=== PATIENT | female | born 1985 | race Caucasian/White ===

== ENCOUNTER 2020-03-12 06:45 | Emergency (ER) | payer MEDICAID, OTHER ==
[2020-03-12 07:42] LABS: ANION GAP 18.8 mmol/L (5-15); CHLORIDE,CL 103 mmol/L (98-115); SODIUM,NA 141 mmol/L (136-145)
[2020-03-12] MEDS ORDERED: Glucose Gel 15 GM in 37.5 GM Tube PO ONE (07:49)
[2020-03-12] MEDS ORDERED: Glucose Gel 15 GM in 37.5 GM Tube ONE (07:52)
[2020-03-12] MEDS ORDERED: Iopamidol 755 Mg/ML 100 ML Bottle IV ONE (08:02)
--- NOTE | 2020-03-12 08:02 | CR ---
[id number] RAD/RAD Chest PA And Lateral EXAM: RAD Chest PA And Lateral CLINICAL DATA: CHEST PAIN COMPARISON: NO PREVIOUS SIMILAR EXAM IS AVAILABLE. FINDINGS: The lungs are clear. The cardiomediastinal contour is normal. The regional bones and soft tissues are unremarkable. IMPRESSION: NO ACUTE PROCESS. Cesar Brooks MD 03/12/20 0800 Thank you for allowing us to participate in the care of your patient.
--- NOTE | 2020-03-12 08:09 | EDM.PDOC ---
ED HPI GENERAL MEDICAL PROBLEM - General Chief Complaint: General Stated Complaint: heart pounding Time Seen by Provider: 03/12/20 07:40 Source of Information: Reports: Patient History Limitations: Reports: No Limitations - History of Present Illness INITIAL COMMENTS - FREE TEXT/NARRATIVE: Patient is a 35-year-old female who presents to the emergency department this morning via private vehicle with a complaint of palpitations, nervousness, shortness of breath. Patient states symptoms began at 2 a.m. She was awoken suddenly and felt very shaky with palpitations. Patient is able to fall back to sleep, woke again at 6 a.m. with similar symptoms. She decided to present to the emergency department. Patient states she is 15 days for a stillbirth at 35 weeks. The was vaginal. Patient states she's had no complications since then. Patient admits to being distressed but denies taking any medication or hurting self. Patient has no other medical history, history of DVTs, fever, chest pain, shortness of breath, headache, trauma, abdominal pain, nausea, vomiting, diarrhea, out of area travel, or recent lower extremity edema. Onset: Today, Sudden Duration: Hour(s): Location: Reports: Chest Quality: Reports: Other (Pounding) Severity: Mild Improves with: Reports: None Worsens with: Reports: None Context: Reports: Other (At rest) Associated Symptoms: Reports: Nausea/Vomiting, Shortness of Breath. Denies: Chest Pain, Cough, cough w sputum, Diaphoresis, Fever/Chills, Headaches, Rash - Related Data Allergies Allergy/AdvReac Type Severity Reaction Status Date / Time Penicillins Allergy Shortness Verified 03/12/20 07:41 of Breath Home Meds: Home Meds Furosemide [Lasix] 20 mg PO PRN 03/12/20 [History] Social & Family History - Tobacco Use Smoking Status *Q: Never Smoker Second Hand Smoke Exposure: No - Caffeine Use Caffeine Use: Reports: Coffee, Soda, Tea Other Caffeine Use: 1 cup coffee a day - Alcohol Use Days Per Week of Alcohol Use: 3 Number of Drinks Per Day: 3 Total Drinks Per Week: 9 - Recreational Drug Use Recreational Drug Use: No ED ROS GENERAL - Review of Systems Review Of Systems: Comprehensive ROS is negative, except as noted in HPI. Constitutional: Reports: No Symptoms HEENT: Reports: No Symptoms Respiratory: Reports: Shortness of Breath Cardiovascular: Reports: Palpitations Endocrine: Reports: No Symptoms GI/Abdominal: Reports: No Symptoms : Reports: No Symptoms Musculoskeletal: Reports: No Symptoms Skin: Reports: No Symptoms Neurological: Reports: No Symptoms Psychiatric: Reports: No Symptoms Hematologic/Lymphatic: Reports: No Symptoms Immunologic: Reports: No Symptoms ED EXAM, GENERAL - Physical Exam Exam: See Below Exam Limited By: No Limitations General Appearance: Alert, WD/WN, No Apparent Distress Eye Exam: Bilateral Eye: Normal Inspection Nose: Normal Inspection, Normal Mucosa, No Blood Throat/Mouth: Normal Inspection, Normal Oropharynx, No Airway Compromise Head: Atraumatic, Normocephalic Neck: Normal Inspection, Supple, Non-Tender Respiratory/Chest: No Respiratory Distress, Lungs Clear, Normal Breath Sounds, No Accessory Muscle Use, Chest Non-Tender Cardiovascular: Regular Rate, Rhythm, No Murmur, No Rub GI/Abdominal: Normal Bowel Sounds, Soft, Non-Tender, No Organomegaly, No Distention, No Abnormal Bruit, No Mass Back Exam: Normal Inspection. No: CVA Tenderness (L), CVA Tenderness (R) Extremities: Normal Inspection, No Pedal Edema Neurological: Alert, Oriented, CN II-XII Intact, Normal Cognition, No Motor/ Sensory Deficits Psychiatric: Anxious Skin Exam: Warm, Dry, Intact, Normal Color, No Rash Lymphatic: No Adenopathy EKG INTERPRETATION EKG Date: 03/12/20 Time: 07:20 Rhythm: NSR Rate (Beats/Min): 79 [place]: Normal P-Wave: Present QRS: Normal ST-T: Normal QT: Normal Comparison: NA - No Prior EKG Course - Vital Signs Last Recorded V/S: Last Vital Signs Temp 97.0 F 03/12/20 07:12 Pulse 99 03/12/20 10:34 Resp 18 03/12/20 10:34 BP 122/62 03/12/20 10:34 Pulse Ox 100 03/12/20 10:34 - Orders/Labs/Meds Orders: Active Orders 24 hr Category Date Time Status Accu Check [Blood Glucose Check, Bedside] [] ONETIME Care 03/12/20 08:00 Ordered Blood Glucose Check, Bedside [] ONETIME Care 03/12/20 09:00 Active Blood Glucose Check, Bedside [] ONETIME Care 04/15/20 09:40 Active Blood Glucose Check, Bedside [RC] ONETIME Care 03/12/20 10:25 Active EKG Documentation Completion [RC] ASDIRECTED Care 03/12/20 07:23 Active Sodium Chloride 0.9% [Normal Saline] 100 ml Med 03/12/20 08:15 Active IV ASDIRECTED Sodium Chloride 0.9% [Saline Flush] Med 03/12/20 09:09 Active 10 ml FLUSH ASDIRECTED PRN Medication Orders Sodium Chloride (Normal Saline) 100 mls @ 200 mls/min IV ASDIRECTED MALIHA Last Admin: 03/12/20 10:10 Dose: 200 mls/min Sodium Chloride (Saline Flush) 10 ml FLUSH ASDIRECTED PRN PRN Reason: IV Use Last Admin: 03/12/20 09:15 Dose: 10 ml Admin: 03/12/20 09:08 Dose: 10 ml Labs: Laboratory Tests 03/12/20 03/12/20 03/12/20 Range/Units 07:05 07:05 07:05 WBC 4.23 L (5.00-10.00) 10^3/uL RBC 3.72 L (3.80-5.50) 10^6/uL Hgb 10.0 L (12.0-16.0) g/dL Hct 31.5 L (37.0-47.0) % MCV 84.7 (82.0-92.0) fL MCH 26.9 L (27.0-31.0) pg MCHC 31.7 L (32.0-36.0) g/dL RDW 19.8 H (11.5-14.5) % Plt Count 119 L (150-400) 10^3/uL MPV 10.7 H (7.4-10.4) fL Immature Gran % (Auto) 0.2 (0.0-5.0) % Neut % (Auto) 62.9 (50.0-70.0) % Lymph % (Auto) 30.5 (20.0-40.0) % [place] % (Auto) 5.7 (2.0-8.0) % Eos % (Auto) 0.5 L (1.0-3.0) % Baso % (Auto) 0.2 (0.0-1.0) % Immature Gran # (Auto) 0.01 (0.00-0.50) 10^3/uL Neut # (Auto) 2.66 (2.50-7.00) 10^3/uL Lymph # (Auto) 1.29 (1.00-4.00) 10^3/uL [place] # (Auto) 0.24 (0.10-0.80) 10^3/uL Eos # (Auto) 0.02 L (0.10-0.30) 10^3/uL Baso # (Auto) 0.01 (0.00-0.10) 10^3/uL D-Dimer, Quantitative 1310 H (<400) ng/mL Sodium 141 (136-145) mmol/L Potassium 3.7 (3.3-5.3) mmol/L Chloride 103 (98-115) mmol/L Carbon Dioxide 22.9 (21.0-32.0) mmol/L Anion Gap 18.8 H (5-15) mmol/L BUN 4 L (6-25) mg/dL Creatinine 0.67 (0.51-1.17) mg/dL Est Cr Clr Drug Dosing 125.53 mL/min Estimated GFR (MDRD) > 60 mL/min Glucose 48 L (75 - 99) mg/dL Calcium 6.7 L (8.7-10.3) mg/dL Total Bilirubin 1.0 (0.2-1.0) mg/dL AST 132 H (15-37) U/L ALT 59 (12-78) U/L Alkaline Phosphatase 141 H (46-116) IU/L Total Protein 5.9 L (6.4-8.2) g/dL Albumin 2.69 L (3.00-4.80) g/dL Meds: Medications Generic Name Dose Route Start Last Admin Trade Name Freq PRN Reason Stop Dose Admin Sodium Chloride 100 mls @ 200 mls/min 03/12/20 08:15 03/12/20 10:10 Normal Saline IV 200 mls/min ASDIRECTED MALIHA Administration Sodium Chloride 10 ml 03/12/20 09:09 03/12/20 09:15 Saline Flush FLUSH 10 ml ASDIRECTED PRN Administration IV Use Discontinued Medications Generic Name Dose Route Start Last Admin Trade Name Freq PRN Reason Stop Dose Admin Dextrose 15 gm 03/12/20 07:49 03/12/20 07:55 Glutose 15 PO 03/12/20 07:50 15 gm ONETIME ONE Administration Dextrose Confirm 03/12/20 07:52 03/12/20 08:51 Glutose 15 Administered 03/12/20 07:53 Not Given Dose 15 gm .ROUTE .STK-MED ONE Dextrose/Water 50 ml 03/12/20 09:02 03/12/20 09:09 Dextrose 50% In Water IVPUSH 03/12/20 09:03 50 ml ONETIME ONE Administration Iopamidol 100 ml 03/12/20 08:02 03/12/20 10:09 Isovue-370 (76%) IV 03/12/20 08:03 75 ml ONETIME ONE Administration Lorazepam 0.5 mg 03/12/20 10:30 Ativan PO 03/12/20 10:31 ONETIME ONE Ondansetron HCl 4 mg 03/12/20 10:32 03/12/20 10:37 Zofran IVPUSH 03/12/20 10:33 4 mg ONETIME ONE Administration - Radiology Interpretation Free Text/Narrative:: Chest x-ray shows no acute cardiopulmonary process CT chest with contrast shows no pulmonary emboli. There is a left 2.5 cm indeterminate adrenal mass - Re-Assessments/Exams Free Text/Narrative Re-Assessment/Exam: 03/12/20 10:38 Patient initially given glucose gel with a rise in glucose to 67. Patient then given dextrose 50, which increased glucose to 160. Discussed case with Dr. Michelle Peralta. Patient will get a prescription for a glucometer and will monitor glucose daily. Patient will follow-up with Dr. Ferreira Tuesday or Tuesday next week. Patient will return to emergency department if symptoms worsen. 03/12/20 10:39 03/12/20 10:40 Departure - Departure Time of Disposition: 10:48 Disposition: Home, Self-Care 01 Condition: Good Clinical Impression: Hypoglycemia, Adrenal mass 1 cm to 4 cm in diameter with no history of malignant neoplasm - Discharge Information Instructions: Preventing Hypoglycemia, Hypoglycemia, [id number], Adrenal Adenoma, Blood Glucose Monitoring, Adult Referrals: Alise Flannery MD [Primary Care Provider] - Forms: ED Department Discharge Additional Instructions: Monitor blood glucose 3 times per day. Follow-up with Dr. Ferreira Tuesday or Tuesday next week. Return to emergency department sooner if symptoms continue or worsen. Sepsis Event Note - Evaluation Sepsis Screening Result: No Definite Risk - Focused Exam Vital Signs: Vital Signs Temp Pulse Resp BP Pulse Ox 03/12/20 10:34 99 18 122/62 100 03/12/20 10:23 96 18 121/65 100 03/12/20 10:07 97 18 121/59 L 100 03/12/20 09:43 89 19 111/64 100 03/12/20 09:15 86 18 107/48 L 100 03/12/20 08:53 85 12 114/55 L 100 03/12/20 07:12 97.0 F 112 H 22 H 132/76 99 Date Exam was Performed: 03/12/20 Time Exam was Performed: 10:39 - My Orders Last 24 Hours: My Active Orders 03/12/20 07:23 EKG Documentation Completion [RC] ASDIRECTED 03/12/20 08:00 Accu Check [Blood Glucose Check, Bedside] [RC] ONETIME 03/12/20 08:15 Sodium Chloride 0.9% [Normal Saline] 100 ml IV ASDIRECTED 03/12/20 09:00 Blood Glucose Check, Bedside [RC] ONETIME 03/12/20 09:09 Sodium Chloride 0.9% [Saline Flush] 10 ml FLUSH ASDIRECTED PRN 03/12/20 09:40 Blood Glucose Check, Bedside [RC] ONETIME 03/12/20 10:25 Blood Glucose Check, Bedside [RC] ONETIME - Assessment/Plan Last 24 Hours: My Active Orders 03/12/20 07:23 EKG Documentation Completion [RC] ASDIRECTED 03/12/20 08:00 Accu Check [Blood Glucose Check, Bedside] [RC] ONETIME 03/12/20 08:15 Sodium Chloride 0.9% [Normal Saline] 100 ml IV ASDIRECTED 03/12/20 09:00 Blood Glucose Check, Bedside [RC] ONETIME 03/12/20 09:09 Sodium Chloride 0.9% [Saline Flush] 10 ml FLUSH ASDIRECTED PRN 03/12/20 09:40 Blood Glucose Check, Bedside [RC] ONETIME 03/12/20 10:25 Blood Glucose Check, Bedside [RC] ONETIME Assessment:: Hypoglycemia, adrenal mass Plan: Follow-up with Dr. Ferreira
[2020-03-12] MEDS ORDERED: Sodium Chloride 0.9% 100 ML IV SCH (08:15)
[2020-03-12] MEDS ORDERED: 50% Dextrose in Water 50 ML Syringe IVPUSH ONE (09:02)
--- NOTE | 2020-03-12 09:06 | CT ---
[id number] CT/CT Chest W IV Exam: CT Chest W IV Clinical Data: ELEVATED D-DIMER COMPARISON: NO PREVIOUS SIMILAR EXAM IS AVAILABLE FINDINGS: There are no pulmonary emboli seen. There is no infiltrate or effusion There is no mediastinal mass or adenopathy The great vessels appear to be intact There are surgical changes of the GE junction There appears to be an indeterminate 2.5 cm left adrenal mass Arterial imaging only was performed Consider follow-up CT of the abdomen with portal venous phase contrast enhancement There appears to be a fatty liver IMPRESSION: NO PULMONARY EMBOLI SURGICAL CHANGES AT GE JUNCTION LEFT ADRENAL MASS Cesar Brooks MD 03/12/20 0905 Thank you for allowing us to participate in the care of your patient.
[2020-03-12] MEDS: Sodium Chloride 0.9% 10 ML Syringe FLUSH PRN ×3 (09:08→10:40)
[2020-03-12] MEDS ORDERED: LORazepam 0.5 MG Tab PO ONE ×2 (10:30→11:14)
[2020-03-12] MEDS ORDERED: Ondansetron 4 MG/2 ML SDV IVPUSH ONE (10:32)
[2020-03-12] MEDS ORDERED: Ondansetron 4 MG/2 ML SDV ONE (10:36)
[2020-03-12 12:14] VITALS: BP 118/59; PULSE 109
== END 2020-03-12 12:40 | disposition home or self-care (01) ==
LOC: KA.ED 06:45
DX: E16.2 Hypoglycemia, unspecified (principal); E27.8 Other specified disorders of adrenal gland; Z88.0 Allergy status to penicillin
CPT/HCPCS: 36415; 71046; 71260; 80053; 82962; 85025; 85379; 93005; 96374; 96375; 99284; 99285-25; A9270-GY; J2405; J7050; Q9967

== ENCOUNTER 2020-04-03 15:10 | Emergency (ER) | payer MEDICAID ==
[2020-04-03] MEDS: Sodium Chloride 0.9% 1,000 ML IV ONE (15:41)
--- NOTE | 2020-04-03 15:53 | EDM.PDOCBH ---
ED HPI GENERAL MEDICAL PROBLEM - General Chief Complaint: Behavioral/Psych Stated Complaint: Psych EVAL/drinking Time Seen by Provider: 04/03/20 15:40 Source of Information: Reports: Patient History Limitations: Reports: Intoxication - History of Present Illness INITIAL COMMENTS - FREE TEXT/NARRATIVE: 35-year-old female brought in by EMS for psychiatric evaluation. Patient has a long history of alcohol abuse. This was exacerbated since she experienced a miscarriage on February 24. She's been drinking approximately a liter of vodka a day. She is currently living with her grandmother. She stated to her grandmother " why don't you just shoot me". She is requesting help for her alcohol dependence and wanting to go through rehabilitation. She has drank about three quarters of a liter of vodka today. She is clearly intoxicated but reasonably cooperative with the medical staff and myself. We did place a IV in her right antecubital 1 L normal saline fluid is started. Lab work for blood alcohol and toxicology were drawn as well as a basic metabolic panel and CBC. She does not take any medications other than a multivitamin. Onset: Today Onset Date: 04/03/20 Duration: Hour(s):, Recurring Location: Reports: Generalized Severity: Severe Associated Symptoms: Reports: Other (Slurred speech). Denies: Nausea/Vomiting - Related Data Allergies Allergy/AdvReac Type Severity Reaction Status Date / Time Penicillins Allergy Shortness Verified 04/03/20 15:17 of Breath Home Meds: Home Meds . [No Known Home Meds] 04/03/20 [History] Past Medical History - Past Surgical History HEENT Surgical History: Reports: Tonsillectomy GI Surgical History: Reports: Other (See Below) Other GI Surgeries/Procedures: Gastric bypass Social & Family History - Tobacco Use Used Tobacco, but Quit: Yes Month/Year Tobacco Last Used: 2009 - Caffeine Use Caffeine Use: Reports: None Other Caffeine Use: 1 cup coffee a day - Alcohol Use Days Per Week of Alcohol Use: 7 Number of Drinks Per Day: 5 Total Drinks Per Week: 35 Date of Last Drink: 04/03/20 Time of Last Drink: 13:00 - Recreational Drug Use Recreational Drug Use: Yes Drug Use in Last 12 Months: No ED ROS GENERAL - Review of Systems Review Of Systems: Comprehensive ROS is negative, except as noted in HPI. ED EXAM, BEHAVIORAL HEALTH - Physical Exam Exam: See Below Exam Limited By: Intoxication General Appearance: Alert, WD/WN, No Apparent Distress Eye Exam: Bilateral Eye: EOMI Ears: Hearing Grossly Normal Nose: Normal Inspection Throat/Mouth: No Airway Compromise Head: Atraumatic Neck: Normal Inspection, Supple Respiratory/Chest: Lungs Clear, Normal Breath Sounds Cardiovascular: Normal Peripheral Pulses, Regular Rate, Rhythm GI/Abdominal: Soft, Non-Tender Back Exam: Normal Inspection Extremities: Normal Inspection Neurological: Alert, Slow Response to Commands, Other (Clearly intoxicated was slowed motor skills ) Psychiatric: Alert, Depressed Mood, Tearful Skin Exam: Warm, Dry, Intact, Normal color, No rash COURSE, BEHAVIORAL HEALTH COMP - Course Vital Signs: Last Vital Signs Temp 98.1 F 04/03/20 15:12 Pulse 100 04/03/20 15:12 Resp 16 04/03/20 15:12 BP 145/91 H 04/03/20 15:12 Pulse Ox 94 L 04/03/20 15:12 Orders, Labs, Meds: Laboratory Tests 04/03/20 04/03/20 04/03/20 Range/Units 15:35 15:35 16:15 WBC 3.46 L (5.00-10.00) 10^3/uL RBC 4.70 (3.80-5.50) 10^6/uL Hgb 13.5 D (12.0-16.0) g/dL Hct 42.6 (37.0-47.0) % MCV 90.6 D (82.0-92.0) fL MCH 28.7 (27.0-31.0) pg MCHC 31.7 L (32.0-36.0) g/dL RDW 20.4 H (11.5-14.5) % Plt Count 161 (150-400) 10^3/uL MPV 10.2 (7.4-10.4) fL Add Manual Diff Yes Neutrophils % (Manual) 38 L (50-70) % Lymphocytes % (Manual) 59 H (20-40) % Monocytes % (Manual) 3 (2-8) % Absolute Neutrophils 1.31 Lymphocytes # (Manual) 2.04 Monocytes # (Manual) 0.10 Elliptocytes 1+ slight Sodium 150 H (136-145) mmol/L Potassium 4.1 (3.3-5.3) mmol/L Chloride 107 (98-115) mmol/L Carbon Dioxide 27.0 (21.0-32.0) mmol/L Anion Gap 20.1 H (5-15) mmol/L BUN 8 (6-25) mg/dL Creatinine 0.76 (0.51-1.17) mg/dL Est Cr Clr Drug Dosing 110.66 mL/min Estimated GFR (MDRD) > 60 mL/min Glucose 87 (75 - 99) mg/dL Calcium 8.5 L D (8.7-10.3) mg/dL Urine Opiates Screen Negative (NEGATIVE) Ur Oxycodone Screen Negative (NEGATIVE) Urine Methadone Screen Negative (NEGATIVE) Ur Propoxyphene Screen Negative (NEGATIVE) Ur Barbiturates Screen Negative (NEGATIVE) Ur Tricyclics Screen Negative (NEGATIVE) Ur Phencyclidine Scrn Negative (NEGATIVE) Ur Amphetamine Screen Negative (NEGATIVE) U Methamphetamines Scrn Negative (NEGATIVE) U Benzodiazepines Scrn Negative (NEGATIVE) U Cocaine Metab Screen Negative (NEGATIVE) U Marijuana (THC) Screen Negative (NEGATIVE) Ethyl Alcohol 481 H* (NONE DETECTED) mg/dL Medications Discontinued Medications Generic Name Dose Route Start Last Admin Trade Name Freq PRN Reason Stop Dose Admin Sodium Chloride 1,000 mls @ 999 mls/hr 04/03/20 15:25 04/03/20 15:41 Normal Saline IV 04/03/20 16:25 999 mls/hr .BOLUS ONE Administration Lorazepam 0.5 mg 04/03/20 16:41 04/03/20 16:50 Ativan PO 04/03/20 16:42 0.5 mg ONETIME ONE Administration Lorazepam 0.5 mg 04/03/20 17:33 Ativan PO 04/03/20 17:34 ONETIME ONE Re-Assessment/Re-Exam: Patient has been compliant and receptive to care. We did start an IV running on normal saline and right antecubital. She was cooperative with laboratory draw. She is requesting help for her alcohol abuse and dependency. Departure - Departure Time of Disposition: 18:00 Disposition: DC/Tfer to Psych Hosp/Unit 65 Condition: Fair Clinical Impression: Alcohol abuse, Depressive disorder, Anxiety Alcohol intoxication Qualifiers: Complication of substance-induced condition: uncomplicated Qualified Code(s): F10.920 - Alcohol use, unspecified with intoxication, uncomplicated - Discharge Information Instructions: Alcohol Intoxication, Major Depressive Disorder, Adult, Easy-to- Read, Alcohol Withdrawal Syndrome, [id number], Living With Anxiety Referrals: Alise Flannery MD [Primary Care Provider] - Forms: ED Department Discharge Sepsis Event Note - Evaluation Sepsis Screening Result: No Definite Risk - Focused Exam Vital Signs: Vital Signs Temp Pulse Resp BP Pulse Ox 04/03/20 15:12 98.1 F 100 16 145/91 H 94 L Date Exam was Performed: 04/03/20 Time Exam was Performed: 17:35 - Assessment/Plan Assessment:: Alcohol intoxication Dependency [place]. depressive disorder Plan: Recommend transferring to inpatient alcohol dependent treatment. We will make arrangements for transfer, looking at the [facility] in [place]. Patient will be transferred by EMS to [place]. Patient and family are adamantly refusing to be transferred to the [facility] at this time. They were recommend that she come home with them and have supervision staying with the grandma where she is currently living. I discussed this with the [facility] her [facility] human services and she remained recommends that a for safety planning is in place that this would be option for her to go home with family. I do recommend that the family reconsider doing an outpatient chemical dependency program with [facility] in [place].
[2020-04-03 16:05] LABS: ANION GAP 20.1 mmol/L (5-15); CHLORIDE,CL 107 mmol/L (98-115); SODIUM,NA 150 mmol/L (136-145)
[2020-04-03 16:39] LABS: BARBITURATE SCREEN,URINE NEGATIVE (NEGATIVE); BENZODIAZEPINES SCREEN,URINE NEGATIVE (NEGATIVE)
[2020-04-03 16:40] LABS: TCA SCREEN,URINE NEGATIVE (NEGATIVE); THC SCREEN,URINE 50 NG/ML NEGATIVE (NEGATIVE)
[2020-04-03] MEDS: LORazepam 0.5 MG Tab PO ONE ×2 (16:50→17:39)
== END 2020-04-03 18:20 ==
LOC: KA.ED 15:10
DX: F10.129 Alcohol abuse with intoxication, unspecified (principal); Y90.8 Blood alcohol level of 240 mg/100 ml or more; F32.9 Major depressive disorder, single episode, unspecified; F41.9 Anxiety disorder, unspecified; Z88.0 Allergy status to penicillin; Z87.891 Personal history of nicotine dependence
CPT/HCPCS: 80048; 80305-QW; 80307; 85025; 99284; A9270-GY; J7030

== ENCOUNTER 2020-07-04 12:30 | Emergency (ER) | payer MEDICAID ==
--- NOTE | 2020-07-04 12:49 | EDM.PDOC ---
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: Psychiatric History: Reports: Addiction, Depression - Past Surgical History HEENT Surgical History: Reports: Tonsillectomy GI Surgical History: Reports: Other (See Below) Other GI Surgeries/Procedures: Gastric bypass Social & Family History - Family History Family Medical History: Noncontributory Neurological: Reports: Alzheimers Disease, Dementia - Tobacco Use Smoking Status *Q: Never Smoker - Caffeine Use Caffeine Use: Reports: None Other Caffeine Use: 1 cup coffee a day - Alcohol Use Days Per Week of Alcohol Use: 7 Number of Drinks Per Day: 20 Total Drinks Per Week: 140 - Recreational Drug Use Recreational Drug Use: No ED ROS GENERAL - Review of Systems Review Of Systems: See Below Constitutional: Reports: Fever, Chills, Weakness HEENT: Reports: Vision Change Respiratory: Reports: No Symptoms Cardiovascular: Reports: No Symptoms Endocrine: Reports: Fatigue GI/Abdominal: Reports: Abdominal Pain, Constipation, Decreased Appetite. Denies: Black Stool, Bloody Stool : Reports: No Symptoms Musculoskeletal: Reports: Muscle Pain Skin: Reports: Bruising Neurological: Reports: Headache Psychiatric: Reports: Agitation Hematologic/Lymphatic: Reports: No Symptoms Immunologic: Reports: No Symptoms ED EXAM, GENERAL - Physical Exam Exam: See Below Free Text/Narrative:: Alert, anxious and in mild tremoring disposition. HEENT is negative to discharge or deformity. PERRLA mild icterus present, EOM intact. Oral mucosa is dry in appearance with furloughed tongue. Strong odor of alcohol drinking beverage from her. Neck shows no lymphadenopathy tenderness to the musculature in general. No rigidity is appreciated. Thorax is clear with no wheezes no crackles. Cardiac S1-S2 I do not appreciate any murmur. Abdomen is general lysed pain throughout with increased pain to the right upper quadrant with palpable liver margin. There is no lower quadrant discomfort nor rebound tenderness. Mild flank discomfort and musculature of the thorax is noted. Bruising to the extremities more prominent to the lower extremities right thigh largest bruise. rectal is deferred. Motion of the extremities is intact with occasional tremor no clonus is noted. Slight improvement of the tremoring and anxiety after medication and D50 given with a repeat blood sugar of 131. EKG INTERPRETATION EKG Date: 07/04/20 Time: 13:58 Rhythm: NSR Nicholson: Normal P-Wave: Present QRS: Normal ST-T: Normal QT: Normal Comparison: NA - No Prior EKG Course - Vital Signs Last Recorded V/S: Last Vital Signs Temp 36.6 C 07/04/20 15:03 Pulse 81 07/04/20 15:03 Resp 16 07/04/20 15:03 BP 116/69 07/04/20 15:03 Pulse Ox 97 07/04/20 15:03 - Orders/Labs/Meds Orders: Active Orders 24 hr Category Date Time Status Blood Glucose Check, Bedside [RC] ONETIME Care 07/04/20 14:08 Active EKG Documentation Completion [RC] ASDIRECTED Care 07/04/20 13:50 Active Peripheral IV Care [RC] . DIRECTED Care 07/04/20 12:55 Active Peripheral IV Insertion Adult [OM.PC] Routine Oth 07/04/20 12:55 Ordered EKG 12 Lead [EK] Urgent Ther 07/04/20 13:49 Ordered Labs: Laboratory Tests 07/04/20 07/04/20 07/04/20 Range/Units 13:03 13:03 13:03 WBC 2.75 L (5.00-10.00) 10^3/uL RBC 4.87 (3.80-5.50) 10^6/uL Hgb 12.6 (12.0-16.0) g/dL Hct 40.6 (37.0-47.0) % MCV 83.4 D (82.0-92.0) fL MCH 25.9 L (27.0-31.0) pg MCHC 31.0 L (32.0-36.0) g/dL RDW 19.2 H (11.5-14.5) % Plt Count 73 L D (150-400) 10^3/uL MPV 9.6 (7.4-10.4) fL Immature Gran % (Auto) 0.4 (0.0-5.0) % Neut % (Auto) 51.9 (50.0-70.0) % Lymph % (Auto) 39.3 (20.0-40.0) % [place] % (Auto) 7.3 (2.0-8.0) % Eos % (Auto) 0.7 L (1.0-3.0) % Baso % (Auto) 0.4 (0.0-1.0) % Neut # (Auto) 1.43 L (2.50-7.00) 10^3/uL Lymph # (Auto) 1.08 (1.00-4.00) 10^3/uL [place] # (Auto) 0.20 (0.10-0.80) 10^3/uL Eos # (Auto) 0.02 L (0.10-0.30) 10^3/uL Baso # (Auto) 0.01 (0.00-0.10) 10^3/uL Immature Gran # (Auto) 0.01 (0.00-0.50) 10^3/uL Sodium 142 (136-145) mmol/L Potassium 4.7 (3.3-5.3) mmol/L Chloride 98 (98-115) mmol/L Carbon Dioxide 24.3 (21.0-32.0) mmol/L Anion Gap 24.4 H (5-15) mmol/L BUN 12 (6-25) mg/dL Creatinine 0.61 (0.51-1.17) mg/dL Est Cr Clr Drug Dosing TNP Estimated GFR (MDRD) > 60 mL/min Glucose 63 L (75 - 99) mg/dL Lactic Acid 2.8 H (0.4-2.0) mmol/L Calcium 8.3 L (8.7-10.3) mg/dL Total Bilirubin 1.2 H (0.2-1.0) mg/dL AST 351 H (15-37) U/L ALT 213 H (12-78) U/L Alkaline Phosphatase 101 (46-116) IU/L Total Protein 7.8 (6.4-8.2) g/dL Albumin 4.27 (3.00-4.80) g/dL Amylase 136 H (25-125) U/L Lipase 1310 H (73-393) U/L HCG, Qual Negative (NEGATIVE) Urine Opiates Screen (NEGATIVE) Ur Oxycodone Screen (NEGATIVE) Urine Methadone Screen (NEGATIVE) Ur Propoxyphene Screen (NEGATIVE) Ur Barbiturates Screen (NEGATIVE) Ur Tricyclics Screen (NEGATIVE) Ur Phencyclidine Scrn (NEGATIVE) Ur Amphetamine Screen (NEGATIVE) U Methamphetamines Scrn (NEGATIVE) U Benzodiazepines Scrn (NEGATIVE) U Cocaine Metab Screen (NEGATIVE) U Marijuana (THC) Screen (NEGATIVE) Ethyl Alcohol 398 H* (NONE DETECTED) mg/dL 07/04/20 Range/Units 13:40 WBC (5.00-10.00) 10^3/uL RBC (3.80-5.50) 10^6/uL Hgb (12.0-16.0) g/dL Hct (37.0-47.0) % MCV (82.0-92.0) fL MCH (27.0-31.0) pg MCHC (32.0-36.0) g/dL RDW (11.5-14.5) % Plt Count (150-400) 10^3/uL MPV (7.4-10.4) fL Immature Gran % (Auto) (0.0-5.0) % Neut % (Auto) (50.0-70.0) % Lymph % (Auto) (20.0-40.0) % [place] % (Auto) (2.0-8.0) % Eos % (Auto) (1.0-3.0) % Baso % (Auto) (0.0-1.0) % Neut # (Auto) (2.50-7.00) 10^3/uL Lymph # (Auto) (1.00-4.00) 10^3/uL [place] # (Auto) (0.10-0.80) 10^3/uL Eos # (Auto) (0.10-0.30) 10^3/uL Baso # (Auto) (0.00-0.10) 10^3/uL Immature Gran # (Auto) (0.00-0.50) 10^3/uL Sodium (136-145) mmol/L Potassium (3.3-5.3) mmol/L Chloride (98-115) mmol/L Carbon Dioxide (21.0-32.0) mmol/L Anion Gap (5-15) mmol/L BUN (6-25) mg/dL Creatinine (0.51-1.17) mg/dL Est Cr Clr Drug Dosing Estimated GFR (MDRD) mL/min Glucose (75 - 99) mg/dL Lactic Acid (0.4-2.0) mmol/L Calcium (8.7-10.3) mg/dL Total Bilirubin (0.2-1.0) mg/dL AST (15-37) U/L ALT (12-78) U/L Alkaline Phosphatase (46-116) IU/L Total Protein (6.4-8.2) g/dL Albumin (3.00-4.80) g/dL Amylase (25-125) U/L Lipase (73-393) U/L HCG, Qual (NEGATIVE) Urine Opiates Screen Negative (NEGATIVE) Ur Oxycodone Screen Negative (NEGATIVE) Urine Methadone Screen Negative (NEGATIVE) Ur Propoxyphene Screen Negative (NEGATIVE) Ur Barbiturates Screen Negative (NEGATIVE) Ur Tricyclics Screen Negative (NEGATIVE) Ur Phencyclidine Scrn Negative (NEGATIVE) Ur Amphetamine Screen Negative (NEGATIVE) U Methamphetamines Scrn Negative (NEGATIVE) U Benzodiazepines Scrn Negative (NEGATIVE) U Cocaine Metab Screen Negative (NEGATIVE) U Marijuana (THC) Screen Negative (NEGATIVE) Ethyl Alcohol (NONE DETECTED) mg/dL Meds: Medications Discontinued Medications Generic Name Dose Route Start Last Admin Trade Name Freq PRN Reason Stop Dose Admin Cyanocobalamin 1,000 mcg 07/04/20 13:06 07/04/20 13:32 Vitamin B12 IM 07/04/20 13:07 1,000 mcg ONETIME ONE Administration Dextrose/Water 50 ml 07/04/20 13:48 07/04/20 13:51 Dextrose 50% In Water IVPUSH 07/04/20 13:49 50 ml ONETIME ONE Administration Sodium Chloride 1,000 mls @ 150 mls/hr 07/04/20 13:00 07/04/20 13:08 Normal Saline IV 150 mls/hr ASDIRECTED MALIHA Administration Midazolam HCl 1 mg 07/04/20 12:59 07/04/20 13:10 Versed 1 Mg/Ml IVPUSH 07/04/20 13:00 1 mg ONETIME ONE Administration Ondansetron HCl 8 mg 07/04/20 14:16 07/04/20 14:24 Zofran IVPUSH 07/04/20 14:17 8 mg ONETIME ONE Administration Sodium Chloride 10 ml 07/04/20 12:55 Saline Flush FLUSH Q8HR PRN keep vein open Thiamine HCl 50 mg 07/04/20 12:56 07/04/20 13:32 Vitamin B-1 IM 07/04/20 12:57 50 mg ONETIME ONE Administration Thiamine HCl 50 mg 07/04/20 13:00 07/04/20 13:25 Vitamin B-1 IVPUSH 07/04/20 13:01 50 mg ONETIME ONE Administration - Re-Assessments/Exams Free Text/Narrative Re-Assessment/Exam: 07/04/20 13:47 Advised of electrolytes, elevation in liver enzymes along with significantly elevated EtOH and will contact [facility] for a acute admission secondary of elevation hepatic enzymes with acute on chronic alcohol intoxication requiring detoxification and stabilization. Departure - Departure Time of Disposition: 15:15 Disposition: DC/Tfer to Acute Hospital 02 Condition: Fair Clinical Impression: Alcohol abuse Alcohol intoxication Qualifiers: Complication of substance-induced condition: with unspecified complication Qualified Code(s): F10.929 - Alcohol use, unspecified with intoxication, unspecified - Discharge Information *PRESCRIPTION DRUG MONITORING PROGRAM REVIEWED*: Not Applicable *COPY OF PRESCRIPTION DRUG MONITORING REPORT IN PATIENT NADIRA: Not Applicable Referrals: Columba Soler V/[employer] [Primary Care Provider] - Forms: ED Department Discharge, Interfacility Transfer [facility] ED Communication - Discussed Case With (1) Discussed Case With (1): Admitting Provider Person/s Notified (1): Olga Date: 07/04/20 Time Called: 14:11 - Conversation Summary Admitting Provider Agreed to Patient's Admission: Yes - Problem List & Annotations (1) Alcohol abuse SNOMED Code(s): 22492270 Code(s): F10.10 - ALCOHOL ABUSE, UNCOMPLICATED Status: Chronic Priority: High (2) Alcohol intoxication SNOMED Code(s): 96385187 Code(s): F10.929 - ALCOHOL USE, UNSPECIFIED WITH INTOXICATION, UNSPECIFIED Status: Chronic Priority: High Qualifiers: Complication of substance-induced condition: with unspecified complication Qualified Code(s): F10.929 - Alcohol use, unspecified with intoxication, unspecified (3) Anxiety SNOMED Code(s): 78334155 Code(s): F41.9 - ANXIETY DISORDER, UNSPECIFIED Status: Chronic Priority: High (4) Pancreatitis SNOMED Code(s): 70621309 Code(s): K85.90 - ACUTE PANCREATITIS WITHOUT NECROSIS OR INFECTION, UNSP Status: Acute Priority: High Qualifiers: Chronicity: acute Pancreatitis type: alcohol induced (5) Elevated LFTs SNOMED Code(s): 395470834, 428551062 Code(s): R79.89 - OTHER SPECIFIED ABNORMAL FINDINGS OF BLOOD CHEMISTRY Status: Chronic Priority: Medium (6) Thrombocytopenia SNOMED Code(s): 847900581 Code(s): D69.6 - THROMBOCYTOPENIA, UNSPECIFIED Status: Acute Priority: High (7) Leukopenia SNOMED Code(s): 54317098, 551205813 Code(s): D72.819 - DECREASED WHITE BLOOD CELL COUNT, UNSPECIFIED Status: Acute Priority: High Qualifiers: Leukopenia type: other Qualified Code(s): D72.818 - Other decreased white blood cell count - Problem List Review Problem List Initiated/Reviewed/Updated: Yes - My Orders Last 24 Hours: My Active Orders 07/04/20 12:55 Peripheral IV Care [RC] . DIRECTED Peripheral IV Insertion Adult [OM.PC] Routine 07/04/20 13:49 EKG 12 Lead [EK] Urgent 07/04/20 13:50 EKG Documentation Completion [RC] ASDIRECTED 07/04/20 14:08 Blood Glucose Check, Bedside [RC] ONETIME - Assessment/Plan Last 24 Hours: My Active Orders 07/04/20 12:55 Peripheral IV Care [RC] . DIRECTED Peripheral IV Insertion Adult [OM.PC] Routine 07/04/20 13:49 EKG 12 Lead [EK] Urgent 07/04/20 13:50 EKG Documentation Completion [RC] ASDIRECTED 07/04/20 14:08 Blood Glucose Check, Bedside [RC] ONETIME Plan: Transfer [facility] accepting.
[2020-07-04] MEDS ORDERED: Sodium Chloride 0.9% 10 ML Syringe FLUSH PRN (12:55)
[2020-07-04] MEDS: Sodium Chloride 0.9% 1,000 ML IV SCH (13:08)
[2020-07-04] MEDS: Midazolam 1 MG/ML 2 ML SDV IVPUSH ONE (13:10)
[2020-07-04] MEDS: Thiamine 200 MG/2 ML MDV IVPUSH ONE (13:25)
[2020-07-04] MEDS: Cyanocobalamin (Vitamin B12) 1,000 MCG/ML SDV IM ONE (13:32)
[2020-07-04] MEDS: Thiamine 200 MG/2 ML MDV IM ONE (13:32)
[2020-07-04 13:36] LABS: ANION GAP 24.4 mmol/L (5-15); CHLORIDE,CL 98 mmol/L (98-115); SODIUM,NA 142 mmol/L (136-145)
[2020-07-04] MEDS: 50% Dextrose in Water 50 ML Syringe IVPUSH ONE (13:51)
[2020-07-04 14:22] LABS: BARBITURATE SCREEN,URINE NEGATIVE (NEGATIVE); BENZODIAZEPINES SCREEN,URINE NEGATIVE (NEGATIVE); TCA SCREEN,URINE NEGATIVE (NEGATIVE); THC SCREEN,URINE 50 NG/ML NEGATIVE (NEGATIVE)
[2020-07-04] MEDS: Ondansetron 4 MG/2 ML SDV IVPUSH ONE (14:24)
== END 2020-07-04 15:05 ==
LOC: KA.ED 12:30
DX: F10.129 Alcohol abuse with intoxication, unspecified (principal); Z88.0 Allergy status to penicillin; S70.11XA Contusion of right thigh, initial encounter; S40.022A Contusion of left upper arm, initial encounter; S40.021A Contusion of right upper arm, initial encounter; Y90.8 Blood alcohol level of 240 mg/100 ml or more; X58.XXXA Exposure to other specified factors, initial encounter
CPT/HCPCS: 80053; 80305-QW; 80307; 82150; 83605; 83690; 84703; 85025; 93005; 96372; 96374; 96375; 99284; 99285-25; J2250; J2405; J3411; J3420; J7030

== ENCOUNTER 2020-07-24 08:34 | Emergency (ER) | payer OTHER, MEDICAID ==
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
[2020-07-24] MEDS ORDERED: Sodium Chloride 0.9% 1,000 ML IV ONE ×2 (09:16→11:08)
[2020-07-24 09:26] LABS: ANION GAP 11.5 mmol/L (5-15); CHLORIDE,CL 109 mmol/L (98-115); SODIUM,NA 145 mmol/L (136-145)
[2020-07-24] MEDS ORDERED: Magnesium Sulfate/Water 2 GM in Premix Bag 1 BAG IV ONE (09:26)
--- NOTE | 2020-07-24 11:22 | CT ---
[id number] CT/CT Head WO IV EXAM: NONCONTRAST HEAD CT INDICATION: SYNCOPE. COMPARISON: None. DISCUSSION: The ventricles and sulci are normal in size and configuration. The and white matter are normal in attenuation. No mass effect or midline shift. No acute hemorrhage or extra-axial fluid collection. No acute territorial infarct is identified. A limited look at the orbits and paranasal sinuses is unremarkable. IMPRESSION: 1. Negative exam. Familia Farias MD 07/24/20 [id number] Thank you for allowing us to participate in the care of your patient.
[2020-07-24] MEDS ORDERED: Ibuprofen 200 MG Tab PO ONE (11:34)
[2020-07-24 11:44] LABS: BARBITURATE SCREEN,URINE NEGATIVE (NEGATIVE); BENZODIAZEPINES SCREEN,URINE NEGATIVE (NEGATIVE); TCA SCREEN,URINE NEGATIVE (NEGATIVE); THC SCREEN,URINE 50 NG/ML NEGATIVE (NEGATIVE)
== END 2020-07-24 12:10 | disposition home or self-care (01) ==
LOC: KA.ED 08:34
DX: R55 Syncope and collapse (principal); F32.9 Major depressive disorder, single episode, unspecified; Z88.0 Allergy status to penicillin; Z79.899 Other long term (current) drug therapy; V89.2XXA Person injured in unspecified motor-vehicle accident, traffic, initial encounter
CPT/HCPCS: 36415; 70450; 80053; 80305-QW; 80307; 81003; 81025; 82140; 82962; 83605; 83735; 84484; 85025; 85379; 93005; 96365; 99284; 99285-25; A9270-GY; J3475; J7030

== ENCOUNTER 2020-08-21 17:36 | Emergency (ER) | payer MEDICAID ==
--- NOTE | 2020-08-21 18:06 | EDM.PDOC ---
ED HPI GENERAL MEDICAL PROBLEM - General Chief Complaint: General Stated Complaint: ETOH Time Seen by Provider: 08/21/20 17:56 Source of Information: Reports: Patient, Police History Limitations: Reports: Intoxication - History of Present Illness INITIAL COMMENTS - FREE TEXT/NARRATIVE: Patient brought to ER via police to get lab draw. His breath analyzer wouldn't read, likely because too high. Patient has a history of DT/seizure activity early on withdrawal so they want her seen by provider. She says her last drink (Vodka) was 8 hours ago (at 1000). She at some fruit today but not much else. She has a history of hypoglycemia she says. Bedside glucose is 76 now. Police tell me they were alerted by patient's grandmother (who she lives with) that she was drinking all day and went to liquor store to get more vodka. Police found her with new bottle and took it from her. She is charged with Meal Ticket and consented to come for analysis. 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: Reports: Addiction, Depression Endocrine/Metabolic History: Reports: Hypomagnesemia - Past Surgical History HEENT Surgical History: Reports: Tonsillectomy GI Surgical History: Reports: Other (See Below) Other GI Surgeries/Procedures: Gastric bypass Social & Family History - Family History Family Medical History: Noncontributory Neurological: Reports: Alzheimers Disease, Dementia - Caffeine Use Caffeine Use: Reports: None Other Caffeine Use: 1 cup coffee a day ED ROS GENERAL - Review of Systems Review Of Systems: See Below Constitutional: Denies: Fever, Chills, Malaise, Weakness HEENT: Denies: Vision Change Respiratory: Denies: Shortness of Breath, Cough Cardiovascular: Denies: Chest Pain, Lightheadedness, Syncope Endocrine: Reports: Low Glucose GI/Abdominal: Denies: Abdominal Pain, Vomiting : Reports: Dysuria. Denies: Flank Pain Musculoskeletal: Denies: Neck Pain, Shoulder Pain, Arm Pain, Back Pain Skin: Denies: Cyanosis, Jaundice, Mottled, Pallor, Diaphoresis Neurological: Reports: Confusion (mild, consistent with intoxication). Denies: Headache, Seizure, Trouble Speaking, Difficulty Walking Psychiatric: Reports: Anxiety (she is concerned she will have withdrawal seizures) ED EXAM, GENERAL - Physical Exam Exam: See Below Exam Limited By: Intoxication (she doesn't remember exactly how many drinks or what she has eaten) General Appearance: Alert, WD/WN, No Apparent Distress Eye Exam: Bilateral Eye: EOMI, Normal Inspection, PERRL Ears: Normal External Exam, Hearing Grossly Normal Nose: Normal Inspection, No Blood Throat/Mouth: Normal Inspection, Normal Lips, Normal Voice, No Airway Compromise Head: Atraumatic, Normocephalic Neck: Normal Inspection, Full Range of Motion Respiratory/Chest: No Respiratory Distress, Lungs Clear, Normal Breath Sounds Cardiovascular: No Murmur, Tachycardia GI/Abdominal: Normal Bowel Sounds, Soft, Non-Tender, No Organomegaly, No Distention Back Exam: Normal Inspection, Full Range of Motion. No: CVA Tenderness (L) Extremities: Normal Range of Motion, Other (for a few minutes she was shaking/wringing her left hand) Neurological: Alert, CN II-XII Intact Psychiatric: Anxious Skin Exam: Warm, Dry, Intact, Normal Color, No Rash Course - Vital Signs Last Recorded V/S: Last Vital Signs Temp 99.2 F 08/21/20 17:48 Pulse 112 H 08/21/20 17:48 Resp 18 08/21/20 17:48 BP 138/85 08/21/20 17:48 Pulse Ox 96 08/21/20 17:48 - Orders/Labs/Meds Orders: Active Orders 24 hr Category Date Time Status Glucose [Blood Glucose Check, Bedside] [RC] ONETIME Care 08/21/20 18:08 Ordered Sodium Chloride 0.9% @ 999 MLS/HR (1000ml) Med 08/21/20 19:05 Ordered Sodium Chloride 0.9% [Normal Saline] 1,000 ml IV .BOLUS Medication Orders Sodium Chloride (Normal Saline) 1,000 mls @ 999 mls/hr IV .BOLUS ONE Stop: 08/21/20 20:05 Last Admin: 08/21/20 19:34 Dose: 999 mls/hr Documented by: URSULA Labs: Laboratory Tests 08/21/20 08/21/20 08/21/20 Range/Units 18:20 18:20 18:34 WBC 3.54 L (5.00-10.00) 10^3/uL RBC 4.42 (3.80-5.50) 10^6/uL Hgb 11.7 L (12.0-16.0) g/dL Hct 36.6 L (37.0-47.0) % MCV 82.8 D (82.0-92.0) fL MCH 26.5 L (27.0-31.0) pg MCHC 32.0 (32.0-36.0) g/dL RDW 19.8 H (11.5-14.5) % Plt Count 112 L D (150-400) 10^3/uL MPV 10.0 (7.4-10.4) fL Immature Gran % (Auto) 0.0 (0.0-5.0) % Neut % (Auto) 41.2 L (50.0-70.0) % Lymph % (Auto) 52.3 H (20.0-40.0) % [place] % (Auto) 5.1 (2.0-8.0) % Eos % (Auto) 1.4 (1.0-3.0) % Baso % (Auto) 0.0 (0.0-1.0) % Neut # (Auto) 1.46 L (2.50-7.00) 10^3/uL Lymph # (Auto) 1.85 (1.00-4.00) 10^3/uL [place] # (Auto) 0.18 (0.10-0.80) 10^3/uL Eos # (Auto) 0.05 L (0.10-0.30) 10^3/uL Baso # (Auto) 0.00 (0.00-0.10) 10^3/uL Immature Gran # (Auto) 0.00 (0.00-0.50) 10^3/uL Sodium 142 (136-145) mmol/L Potassium 4.1 (3.3-5.3) mmol/L Chloride 100 (98-115) mmol/L Carbon Dioxide 23.7 (21.0-32.0) mmol/L Anion Gap 22.4 H (5-15) mmol/L BUN 9 (6-25) mg/dL Creatinine 0.66 (0.51-1.17) mg/dL Est Cr Clr Drug Dosing 127.43 mL/min Estimated GFR (MDRD) > 60 mL/min Glucose 82 (75 - 99) mg/dL Calcium 8.3 L (8.7-10.3) mg/dL Total Bilirubin 0.8 (0.2-1.0) mg/dL AST 48 H (15-37) U/L ALT 47 (12-78) U/L Alkaline Phosphatase 81 (46-116) IU/L Total Protein 7.4 (6.4-8.2) g/dL Albumin 4.10 (3.00-4.80) g/dL Specimen Type Urinblad Urine Color Yellow (YELLOW) Urine Appearance Clear (CLEAR) Urine pH 6.0 (5.0-9.0) Ur Specific [place] 1.015 (1.005-1.030) Urine Protein 100 H (NEGATIVE) mg/dL Urine Glucose (UA) Negative (NEGATIVE) mg/dL Urine Ketones Negative (NEGATIVE) mg/dL Urine Occult Blood Trace-intact H (NEGATIVE) Urine Nitrite Positive H (NEGATIVE) Urine Bilirubin Negative (NEGATIVE) Urine Urobilinogen 0.2 (0.2-1.0) E.U./dL Ur Leukocyte Esterase Small H (NEGATIVE) Urine RBC 5-10 H (0-5) /HPF Urine WBC 20-30 H (0-5) /HPF Ur Epithelial Cells Few /LPF Urine Bacteria Many H (NONE TO FEW) /HPF Ethyl Alcohol 402 H* (NONE DETECTED) mg/dL Meds: Medications Generic Name Dose Route Start Last Admin Trade Name Freq PRN Reason Stop Dose Admin Sodium Chloride 1,000 mls @ 999 mls/hr 08/21/20 19:05 08/21/20 19:34 Normal Saline IV 08/21/20 20:05 999 mls/hr .BOLUS ONE Administration - Re-Assessments/Exams Free Text/Narrative Re-Assessment/Exam: 08/21/20 19:26 ANTHONY is .402; UA shows a mild UTI. Discussed findings with patient. Patient requests detox at [facility] in [place]. I discussed case with Dr. Berrios, hospitalist there who accepted for transfer. She will go by EMS with IV fluids running. Patient is doing well with no sign of seizure or other withdrawal activity. Departure - Departure Time of Disposition: 19:24 Disposition: DC/Tfer to [facility] 02 Condition: Good Clinical Impression: Acute UTI Alcohol intoxication Qualifiers: Complication of substance-induced condition: with unspecified complication Qualified Code(s): F10.929 - Alcohol use, unspecified with intoxication, unspecified - Discharge Information Referrals: Columba Soler, DAIRY GRAZER [Primary Care Provider] - Forms: ED Department Discharge Sepsis Event Note (ED) - Evaluation Sepsis Screening Result: No Definite Risk - Focused Exam Vital Signs: Vital Signs Temp Pulse Resp BP Pulse Ox 08/21/20 17:48 99.2 F 112 H 18 138/85 96 - My Orders Last 24 Hours: My Active Orders 08/21/20 18:08 Glucose [Blood Glucose Check, Bedside] [RC] ONETIME 08/21/20 19:05 Sodium Chloride 0.9% @ 999 MLS/HR (1000ml) Sodium Chloride 0.9% [Normal Saline] 1,000 ml IV .BOLUS - Assessment/Plan Last 24 Hours: My Active Orders 08/21/20 18:08 Glucose [Blood Glucose Check, Bedside] [RC] ONETIME 08/21/20 19:05 Sodium Chloride 0.9% @ 999 MLS/HR (1000ml) Sodium Chloride 0.9% [Normal Saline] 1,000 ml IV .BOLUS
[2020-08-21 18:51] LABS: ANION GAP 22.4 mmol/L (5-15); CHLORIDE,CL 100 mmol/L (98-115); SODIUM,NA 142 mmol/L (136-145)
[2020-08-21] MEDS ORDERED: Sodium Chloride 0.9% 1,000 ML IV ONE (19:05)
== END 2020-08-21 20:17 ==
LOC: KA.ED 17:36
DX: N39.0 Urinary tract infection, site not specified (principal); F10.129 Alcohol abuse with intoxication, unspecified; R00.0 Tachycardia, unspecified; F32.9 Major depressive disorder, single episode, unspecified; Y90.8 Blood alcohol level of 240 mg/100 ml or more; Z88.0 Allergy status to penicillin; Z79.899 Other long term (current) drug therapy
CPT/HCPCS: 36415; 80053; 80307; 81001; 85025; 96360; 99283; 99285-25; J7030

== ENCOUNTER 2020-08-30 17:41 | Emergency (ER) | payer MEDICAID ==
--- NOTE | 2020-08-30 18:18 | EDM.PDOC ---
ED HPI GENERAL MEDICAL PROBLEM - General Chief Complaint: Lower Extremity Injury/Pain Stated Complaint: INJURED FOOT Time Seen by Provider: 08/30/20 18:01 Source of Information: Reports: Patient History Limitations: Reports: No Limitations - History of Present Illness INITIAL COMMENTS - FREE TEXT/NARRATIVE: 35 YO WF PRESENTS TO ER COMPLAINING OF RIGHT FOOT PAIN/INJURY WHICH OCCURRED YESTERDAY. PT REPORTS SHE WAS TEXTING ON HER PHONE AND MISSTEPPED OFF HER CONCRET[address] DRIVEWAY. PT REPORTS PAIN TO HER RIGHT MIDFOOT WITH ECCHYMOSIS AND SWELLING. PT DENIES ANY OTHER INJURIES AT THIS TIME. PT DENIES MOTOR OR SENSORY DEFICITS. 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 Right Foot Pain Score (Numeric/FACES): 10 - Related Data Allergies Allergy/AdvReac Type Severity Reaction Status Date / Time Penicillins Allergy Shortness Verified 08/30/20 17:45 of Breath Home Meds: Home Meds FLUoxetine HCl [Prozac] 20 mg PO DAILY 07/24/20 [History] Multivitamin [Multivitamins] 1 tab PO DAILY 07/24/20 [History] Pantoprazole [ProTONIX] 40 mg PO DAILY 07/24/20 [History] hydrOXYzine HCL [Hydroxyzine HCl] 25 mg PO ASDIRECTED 08/21/20 [History] Vitamin B Complex [B Complex] 1 each PO DAILY 08/30/20 [History] traMADol [Ultram] 50 mg PO Q4H PRN #10 tab 08/30/20 [Rx] 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: Psychiatric History: Reports: Addiction, Depression Endocrine/Metabolic History: Reports: Hypomagnesemia - Past Surgical History Head Surgeries/Procedures: Reports: None HEENT Surgical History: Reports: Tonsillectomy GI Surgical History: Reports: Other (See Below) Other GI Surgeries/Procedures: Gastric bypass Social & Family History - Family History Family Medical History: Noncontributory Neurological: Reports: Alzheimers Disease, Dementia - Tobacco Use Smoking Status *Q: Never Smoker - Caffeine Use Caffeine Use: Reports: None Other Caffeine Use: 1 cup coffee a day - Alcohol Use Days Per Week of Alcohol Use: 1 Number of Drinks Per Day: 1 Total Drinks Per Week: 1 - Recreational Drug Use Recreational Drug Use: No Review of Systems - Review of Systems Review Of Systems: See Below Constitutional: Reports: No Symptoms Eyes: Reports: No Symptoms Ears: Reports: No Symptoms Nose: Reports: No Symptoms Mouth/Throat: Reports: No Symptoms Respiratory: Reports: No Symptoms Cardiovascular: Reports: No Symptoms GI/Abdominal: Reports: No Symptoms Genitourinary: Reports: No Symptoms Musculoskeletal: Reports: Foot Pain Skin: Reports: No Symptoms Neurological: Reports: No Symptoms Psychiatric: Reports: No Symptoms ED EXAM, GENERAL - Physical Exam Exam: See Below Exam Limited By: No Limitations General Appearance: Alert, WD/WN, No Apparent Distress Eye Exam: Bilateral Eye: PERRL Head: Atraumatic, Normocephalic Neck: Normal Inspection, Supple, Non-Tender, Full Range of Motion Respiratory/Chest: No Respiratory Distress, Lungs Clear, Normal Breath Sounds, No Accessory Muscle Use, Chest Non-Tender Cardiovascular: Normal Peripheral Pulses, Regular Rate, Rhythm, No Edema, No Gallop, No JVD, No Murmur, No Rub GI/Abdominal: Normal Bowel Sounds, Soft, Non-Tender, No Organomegaly, No Distention, No Abnormal Bruit, No Mass Back Exam: Normal Inspection, Full Range of Motion, NT Extremities: Leg Pain (RIGHT FOOT SWELLING WITH ECCHYMOSIS) Neurological: Alert, Oriented, CN II-XII Intact, Normal Cognition, Normal Gait, Normal Reflexes, No Motor/Sensory Deficits Psychiatric: Normal Affect, Normal Mood Skin Exam: Warm, Dry, Intact, Normal Color, No Rash Lymphatic: No Adenopathy ED TRAUMA EXTREMITY PROCEDURES - Splinting Right 2nd Digit Splint Site: FOOT Pre-Procedure NV Status: Normal Post-Procedure NV Status: Normal Splint Material: Other (POST OP SHOE) Applied & Form Fitted By: Nurse Provider Post-Splint Application NV Check: NV Status Normal, Good Position Complications: No Course - Vital Signs Last Recorded V/S: Last Vital Signs Temp 35.9 C L 08/30/20 17:45 Pulse 101 H 08/30/20 17:45 Resp 18 08/30/20 17:45 BP 97/59 L 08/30/20 17:45 Pulse Ox 100 08/30/20 17:45 - Orders/Labs/Meds Orders: Active Orders 24 hr Category Date Time Status Immobilizer [RC] ASDIRECTED Care 08/30/20 18:26 Ordered Ankle 2V Rt [CR] Stat Exams 08/30/20 17:52 Ordered Foot 2V Rt [CR] Stat Exams 08/30/20 17:52 Ordered Meds: Medications Discontinued Medications Generic Name Dose Route Start Last Admin Trade Name Freq PRN Reason Stop Dose Admin Ketorolac Tromethamine 60 mg 08/30/20 18:24 Toradol IM 08/30/20 18:25 ONETIME ONE Tramadol HCl 300 mg 08/30/20 18:24 Ultram PO 08/30/20 18:25 ONETIME ONE - Radiology Interpretation Free Text/Narrative:: RIGHT FOOT XRAY- DISPLACED RIGHT PROXIMAL METATARSAL FRACTURE Departure - Departure Time of Disposition: 18:36 Disposition: Home, Self-Care 01 Condition: Good Clinical Impression: Fracture of metatarsal of right foot, closed Qualifiers: Encounter type: initial encounter Metatarsal bone: second Fracture alignment: displaced Qualified Code(s): S92.321A - Displaced fracture of second metatarsal bone, right foot, initial encounter for closed fracture - Discharge Information Prescriptions: traMADol [Ultram] 50 mg PO Q4H PRN #10 tab PRN Reason: Pain Instructions: Crutch Use, Adult, Metatarsal Fracture Referrals: Columba Soler NP [Primary Care Provider] - Shelton Licea MD [Physician] - Forms: ED Department Discharge Additional Instructions: 1. DISCHARGE HOME 2. REST/ICE/ELEVATION/CRUTCHES 3. MOTRIN 600MG EVERY 6 HOURS X 5 DAYS 4. ULTRAM 50MG EVERY4-6 HOURS NEEDED FOR PAIN 5. FOLLOW UP WITH DR LICEA-YARI FOR FURTHER EVALUATION AND TREATMENT 6. RETURN TO ER FOR WORSENING SYMPTOMS Sepsis Event Note (ED) - Evaluation Sepsis Screening Result: No Definite Risk - Focused Exam Vital Signs: Vital Signs Temp Pulse Resp BP Pulse Ox 08/30/20 17:45 35.9 C L 101 H 18 97/59 L 100 - My Orders Last 24 Hours: My Active Orders 08/30/20 17:52 Ankle 2V Rt [CR] Stat Foot 2V Rt [CR] Stat 08/30/20 18:26 Immobilizer [RC] ASDIRECTED - Assessment/Plan Last 24 Hours: My Active Orders 08/30/20 17:52 Ankle 2V Rt [CR] Stat Foot 2V Rt [CR] Stat 08/30/20 18:26 Immobilizer [RC] ASDIRECTED Assessment:: 1. RIGHT PROXIMAL 2ND METATARSAL FRACTURE Plan: 1. DISCHARGE HOME 2. REST/ICE/ELEVATION/CRUTCHES 3. MOTRIN 600MG EVERY 6 HOURS X 5 DAYS 4. ULTRAM 50MG EVERY4-6 HOURS NEEDED FOR PAIN 5. FOLLOW UP WITH DR LICEA-ORTHO FOR FURTHER EVALUATION AND TREATMENT 6. RETURN TO ER FOR WORSENING SYMPTOMS
[2020-08-30] MEDS ORDERED: traMADol 50 MG Tab PO ONE (18:24)
[2020-08-30] MEDS ORDERED: Ketorolac 60 MG/2 ML SDV IM ONE (18:24)
--- NOTE | 2020-08-30 18:44 | CR ---
[id number] RAD/RAD Ankle Right 2V; [id number] RAD/RAD Foot Right 2V EXAM: RAD Foot Right 2V, RAD Ankle Right 2V INDICATION: Right foot swelling and ecchymosis. COMPARISON: None. DISCUSSION: Acute displaced second third metatarsal base fractures with mild displacement. The second metatarsal base fracture appears to likely extend to the articular surface of the tarsometatarsal joint. Possible nondisplaced fourth and fifth metatarsal base fractures and avulsion fracture off the lateral margin of the cuboid. On the lateral view the fracture second metatarsal appears slightly dorsally subluxed and there is possibility of a Lisfranc type injury. Soft tissue swelling throughout the anterior ankle and dorsum of the foot. Soft tissue calcifications between the distal tibia and fibula could be from previous syndesmotic injury. There are scattered soft tissue calcifications in the distal leg suggestive of phleboliths. IMPRESSION: 1. Displaced second and third metatarsal base fractures with possible fourth and fifth metatarsal base fractures and lateral cuboid avulsion fracture. 2. Mild dorsal subluxation of the first or second metatarsal is suggested on the lateral view and there is a possibility of a Lisfranc type injury. Familia Farias MD 08/30/20 [id number] Thank you for allowing us to participate in the care of your patient.
== END 2020-08-30 19:00 | disposition home or self-care (01) ==
LOC: KA.ED 17:41
DX: S92.321A Displaced fracture of second metatarsal bone, right foot, initial encounter for closed fracture (principal); F32.9 Major depressive disorder, single episode, unspecified; Z88.0 Allergy status to penicillin; Z79.899 Other long term (current) drug therapy; X50.1XXA Overexertion from prolonged static or awkward postures, initial encounter
CPT/HCPCS: 73600; 73620; 96372; 99283; A9270; J1885

== ENCOUNTER 2020-12-14 18:00 | Emergency (ER) | payer MEDICAID ==
[2020-12-14] MEDS ORDERED: Ondansetron 4 MG/2 ML SDV IVPUSH ONE ×3 (18:15→20:41)
[2020-12-14] MEDS ORDERED: Sodium Chloride 0.9% 1,000 ML IV ONE ×2 (18:16→19:30)
[2020-12-14] MEDS ORDERED: MVI, Adult with Vitamin K 10 ML, Folic Acid 1 MG, Thiamine 100 MG in D5 1/2 NS w/ 20 mE... IV ONE ×4 (18:42)
--- NOTE | 2020-12-14 19:14 | EDM.PDOC ---
<Radu Gracia - Last Filed: 12/14/20 20:16> ED HPI GENERAL MEDICAL PROBLEM - General Chief Complaint: Drug or Alcohol Abuse Stated Complaint: POST FALL..INTOXICATED, nausea/vomiting Time Seen by Provider: 12/14/20 18:00 Source of Information: Reports: Patient, Family (grandmother) History Limitations: Reports: Intoxication - History of Present Illness INITIAL COMMENTS - FREE TEXT/NARRATIVE: 35 yo female presents grandmother to the emergency room with complaints of nausea and vomiting throughout the day. She has been complaining of abdominal pain and dry heaving. She had drank quite a bit around a 1.75 L of vodka and fell on Tuesday causing bruising to her face. Has a headache but denies loss of consciousness due to her fall. She denies any change in vision. She states that she has not drank today although her grandmother states that she believes she has been. Her blood alcohol today was drawn at 226. Patient is well-known to history of alcohol abuse and has been seen several times in the emergency room for alcohol intoxication and mental health complaints. Grandmother reports that she drinks at least 1 L of vodka a day. She states that she does not feel that she can continue to have her granddaughter live with her in the state that she continues to begin with her drinking. She is try to get her help which is included mental health and into a detox program. She has history of elevation of LFTs and acute hepatitis and pancreatitis in the past due to her alcohol. She was seen by [facility] recently and worked up and found to have asked extreme elevation of LFTs. Hepatitis screening was negative. He had an ultrasound that showed fatty infiltration of the liver and nonobstructive gallstones. Despite this she co ntinues to struggle with her alcohol abuse. Onset: Unknown/Unsure Duration: Day(s):, Getting Worse Location: Reports: Head, Abdomen Quality: Reports: Ache Severity: Severe Improves with: Reports: None Worsens with: Reports: None Associated Symptoms: Reports: Cough, Headaches, Nausea/Vomiting. 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: Reports: Acetaminophen, NSAIDS right side of body Pain Score (Numeric/FACES): 6 - Related Data Allergies Allergy/AdvReac Type Severity Reaction Status Date / Time Penicillins Allergy Shortness Verified 12/14/20 18:15 of Breath Home Meds: Home Meds FLUoxetine HCl [Prozac] 20 mg PO DAILY 07/24/20 [History] Multivitamin [Multivitamins] 1 tab PO DAILY 07/24/20 [History] Pantoprazole [ProTONIX] 40 mg PO DAILY 07/24/20 [History] hydrOXYzine HCL [Hydroxyzine HCl] 25 mg PO ASDIRECTED 08/21/20 [History] Vitamin B Complex [B Complex] 1 each PO DAILY 08/30/20 [History] traMADol [Ultram] 50 mg PO Q4H PRN #10 tab 08/30/20 [Rx] Past Medical History 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: Psychiatric History: Reports: Addiction, Depression Endocrine/Metabolic History: Reports: Hypomagnesemia - Past Surgical History Head Surgeries/Procedures: Reports: None HEENT Surgical History: Reports: Tonsillectomy GI Surgical History: Reports: Other (See Below) Other GI Surgeries/Procedures: Gastric bypass Musculoskeletal Surgical History: Reports: Other (See Below) Other Musculoskeletal Surgeries/Procedures:: foot fracture surgery with pins on the right foot Social & Family History - Family History Family Medical History: No Pertinent Family History Neurological: Reports: Alzheimers Disease, Dementia - Tobacco Use Tobacco Use Status *Q: Never Tobacco User - Caffeine Use Caffeine Use: Reports: Soda Other Caffeine Use: 1 cup coffee a day - Alcohol Use Date of Last Drink: 12/12/20 - Recreational Drug Use Recreational Drug Use: No ED ROS GENERAL - Review of Systems Review Of Systems: See Below Constitutional: Reports: Chills. Denies: Fever HEENT: Denies: Nosebleed, Throat Pain, Vertigo, Vision Change Respiratory: Reports: Cough, Hemoptysis. Denies: Shortness of Breath Cardiovascular: Denies: Chest Pain, Blood Pressure Problem, Dyspnea on Exertion Endocrine: Reports: No Symptoms GI/Abdominal: Reports: Abdominal Pain, Anorexia, Hematemesis, Nausea, Vomiting. Denies: Distension : Reports: No Symptoms Musculoskeletal: Reports: No Symptoms Skin: Denies: Jaundice Neurological: Reports: Headache Psychiatric: Reports: Anxiety, Depression. Denies: Homicidal Ideation, Suicidal Ideation Hematologic/Lymphatic: Reports: No Symptoms Immunologic: Reports: No Symptoms ED EXAM, GI/ABD - Physical Exam Exam: See Below Exam Limited By: Intoxication General Appearance: Alert, WD/WN, Moderate Distress Eyes: Bilateral: Normal Appearance, EOMI Ears: Hearing Grossly Normal Nose: Normal Inspection, Normal Mucosa, No Blood Throat/Mouth: Normal Oropharynx, Normal Voice, No Airway Compromise, Other (Blood surrounding the patient's lips which is dried. Patient reports from vomiting.). No: Perioral Cyanosis Head: Facial Swelling, Facial Tenderness, Other (Mild swelling and ecchymosis around the right orbital area) Neck: Normal Inspection, Supple, Non-Tender, Full Range of Motion. No: Lymphadenopathy (L), Lymphadenopathy (R) Respiratory/Chest: No Respiratory Distress, Lungs Clear, Normal Breath Sounds, No Accessory Muscle Use Cardiovascular: Tachycardia GI/Abdominal Exam: Soft, No Distention, Tender (Right upper and left upper quadrant to palpation) Back Exam: Normal Inspection, Full Range of Motion Extremities: Normal Inspection, Normal Range of Motion, Non-Tender, No Pedal Edema, Normal Capillary Refill Neurological: Alert, Oriented, CN II-XII Intact, No Motor/Sensory Deficits Psychiatric: Depressed Mood, Flat Affect Skin Exam: Cool Lymphatic: No Adenopathy #1 Interpretation EKG Date: 12/14/20 Rhythm: Other (Sinus tachycardia) Rate (Beats/Min): 120 [place]: Normal P-Wave: Present QRS: Normal ST-T: Normal QT: Normal Comparison: NA - No Prior EKG EKG Interpretation Comments: Sinus tachycardia Possible inferior infarct, age undetermined Abnormal ECG Departure - Departure Disposition: DC/Tfer to [facility] 02 Clinical Impression: Fall from bed, initial encounter, Pancreatitis, Elevated LFTs, Alcohol intoxication - Discharge Information Referrals: Columba Soler FAILURE ANALYSIS ENGINEER [Primary Care Provider] - Forms: ED Department Discharge, Interfacility Transfer EMTALA Additional Instructions: Transfer to [facility] 243 report line. Sepsis Event Note (ED) - Evaluation Sepsis Screening Result: No Definite Risk <Lon Arthur - Last Filed: 12/14/20 21:23> Course - Vital Signs Last Recorded V/S: Last Vital Signs Temp 98 F 12/14/20 19:05 Pulse 116 H 12/14/20 20:32 Resp 23 H 12/14/20 20:32 BP 123/68 12/14/20 20:32 Pulse Ox 100 12/14/20 20:32 - Orders/Labs/Meds Orders: Active Orders 24 hr Category Date Time Status Head wo Cont [CT] Stat Exams 12/14/20 19:47 Ordered MVI, Adult with Vitamin K [Infuvite Adult] 10 ml Med 12/14/20 18:42 Active Folic Acid 1 mg Thiamine [Vitamin B-1] 100 mg D5 1/2 NS w/ 20 mEq/L KCl 1,000 ml IV ONETIME EKG 12 Lead [EK] Stat Ther 12/14/20 19:46 Ordered EKG 12 Lead [EK] Stat Ther 12/14/20 19:48 Stop Req Medication Orders Multivitamins/Minerals 10 ml/Folic Acid 1 mg/ Thiamine HCl 100 mg/ Potassium Chloride/Dextrose/Sod Cl 1,011.2 mls @ 150 mls/hr IV ONETIME ONE Stop: 12/15/20 01:26 Last Admin: 12/14/20 18:58 Dose: 150 mls/hr Documented by: GENO Labs: Laboratory Tests 12/14/20 12/14/20 12/14/20 Range/Units 18:48 18:48 18:48 WBC 14.20 H D (5.00-10.00) 10^3/uL RBC 3.76 L (3.80-5.50) 10^6/uL Hgb 10.6 L (12.0-16.0) g/dL Hct 32.4 L (37.0-47.0) % MCV 86.2 D (82.0-92.0) fL MCH 28.2 (27.0-31.0) pg MCHC 32.7 (32.0-36.0) g/dL RDW 16.7 H (11.5-14.5) % Plt Count 41 L (150-400) 10^3/uL MPV 9.8 (7.4-10.4) fL Immature Gran % (Auto) 1.7 (0.0-5.0) % Neut % (Auto) 89.3 H (50.0-70.0) % Lymph % (Auto) 4.9 L (20.0-40.0) % Camp % (Auto) 4.0 (2.0-8.0) % Eos % (Auto) 0.0 L (1.0-3.0) % Baso % (Auto) 0.1 (0.0-1.0) % Neut # (Auto) 12.68 H (2.50-7.00) 10^3/uL Lymph # (Auto) 0.69 L (1.00-4.00) 10^3/uL Camp # (Auto) 0.57 (0.10-0.80) 10^3/uL Eos # (Auto) 0.00 L (0.10-0.30) 10^3/uL Baso # (Auto) 0.02 (0.00-0.10) 10^3/uL Immature Gran # (Auto) 0.24 (0.00-0.50) 10^3/uL Sodium 123 L (136-145) mmol/L Potassium 3.6 (3.5-5.1) mmol/L Chloride 87 L* (98-107) mmol/L Carbon Dioxide 8.0 L (21.0-32.0) mmol/L Anion Gap 31.6 H (5-15) mmol/L BUN 16 (7-18) mg/dL Creatinine 0.90 (0.51-1.17) mg/dL Est Cr Clr Drug Dosing 93.45 mL/min Estimated GFR (MDRD) > 60 mL/min Glucose 87 (70-140) mg/dL Calcium 8.2 L (8.7-10.3) mg/dL Total Bilirubin 1.2 H (0.2-1.0) mg/dL AST 133 H (15-37) U/L ALT 86 H (14-63) U/L Alkaline Phosphatase 120 H (46-116) U/L Troponin I (0.000-0.056) ng/mL Total Protein 7.2 (6.4-8.2) g/dL Albumin 3.75 (3.40-5.00) g/dL Lipase (73-393) U/L Urine Opiates Screen (NEGATIVE) Ur Oxycodone Screen (NEGATIVE) Urine Methadone Screen (NEGATIVE) Ur Propoxyphene Screen (NEGATIVE) Ur Barbiturates Screen (NEGATIVE) Ur Tricyclics Screen (NEGATIVE) Ur Phencyclidine Scrn (NEGATIVE) Ur Amphetamine Screen (NEGATIVE) U Methamphetamines Scrn (NEGATIVE) U Benzodiazepines Scrn (NEGATIVE) U Cocaine Metab Screen (NEGATIVE) U Marijuana (THC) Screen (NEGATIVE) Ethyl Alcohol 226 H* (NOT DETECTED) mg/dL 12/14/20 12/14/20 12/14/20 Range/Units 18:48 18:48 19:30 WBC (5.00-10.00) 10^3/uL RBC (3.80-5.50) 10^6/uL Hgb (12.0-16.0) g/dL Hct (37.0-47.0) % MCV (82.0-92.0) fL MCH (27.0-31.0) pg MCHC (32.0-36.0) g/dL RDW (11.5-14.5) % Plt Count (150-400) 10^3/uL MPV (7.4-10.4) fL Immature Gran % (Auto) (0.0-5.0) % Neut % (Auto) (50.0-70.0) % Lymph % (Auto) (20.0-40.0) % Camp % (Auto) (2.0-8.0) % Eos % (Auto) (1.0-3.0) % Baso % (Auto) (0.0-1.0) % Neut # (Auto) (2.50-7.00) 10^3/uL Lymph # (Auto) (1.00-4.00) 10^3/uL Camp # (Auto) (0.10-0.80) 10^3/uL Eos # (Auto) (0.10-0.30) 10^3/uL Baso # (Auto) (0.00-0.10) 10^3/uL Immature Gran # (Auto) (0.00-0.50) 10^3/uL Sodium (136-145) mmol/L Potassium (3.5-5.1) mmol/L Chloride (98-107) mmol/L Carbon Dioxide (21.0-32.0) mmol/L Anion Gap (5-15) mmol/L BUN (7-18) mg/dL Creatinine (0.51-1.17) mg/dL Est Cr Clr Drug Dosing mL/min Estimated GFR (MDRD) mL/min Glucose (70-140) mg/dL Calcium (8.7-10.3) mg/dL Total Bilirubin (0.2-1.0) mg/dL AST (15-37) U/L ALT (14-63) U/L Alkaline Phosphatase (46-116) U/L Troponin I < 0.017 (0.000-0.056) ng/mL Total Protein (6.4-8.2) g/dL Albumin (3.40-5.00) g/dL Lipase 1230 H (73-393) U/L Urine Opiates Screen Negative (NEGATIVE) Ur Oxycodone Screen Negative (NEGATIVE) Urine Methadone Screen Negative (NEGATIVE) Ur Propoxyphene Screen Negative (NEGATIVE) Ur Barbiturates Screen Negative (NEGATIVE) Ur Tricyclics Screen Negative (NEGATIVE) Ur Phencyclidine Scrn Negative (NEGATIVE) Ur Amphetamine Screen Negative (NEGATIVE) U Methamphetamines Scrn Negative (NEGATIVE) U Benzodiazepines Scrn Negative (NEGATIVE) U Cocaine Metab Screen Negative (NEGATIVE) U Marijuana (THC) Screen Negative (NEGATIVE) Ethyl Alcohol (NOT DETECTED) mg/dL Meds: Medications Generic Name Dose Route Start Last Admin Trade Name Freq PRN Reason Stop Dose Admin Multivitamins/Minerals 10 ml/ 1,011.2 mls @ 150 mls/hr 12/14/20 18:42 12/14/20 18:58 Folic Acid 1 mg/ Thiamine HCl IV 12/15/20 01:26 150 mls/hr 100 mg/ Potassium Chloride/ ONETIME ONE Administration Dextrose/Sod Cl Discontinued Medications Generic Name Dose Route Start Last Admin Trade Name Freq PRN Reason Stop Dose Admin Sodium Chloride 1,000 mls @ 999 mls/hr 12/14/20 18:16 12/14/20 18:28 Normal Saline IV 12/14/20 19:16 999 mls/hr .BOLUS ONE Administration Sodium Chloride 1,000 mls @ 999 mls/hr 12/14/20 19:30 12/14/20 20:05 Normal Saline IV 12/14/20 20:30 999 mls/hr .BOLUS ONE Administration Ondansetron HCl 4 mg 12/14/20 18:15 12/14/20 18:27 Zofran IVPUSH 12/14/20 18:16 4 mg ONETIME ONE Administration Ondansetron HCl 4 mg 12/14/20 19:30 12/14/20 19:41 Zofran IVPUSH 12/14/20 19:31 4 mg ONETIME ONE Administration Ondansetron HCl 8 mg 12/14/20 20:41 12/14/20 20:45 Zofran IVPUSH 12/14/20 20:42 8 mg ONETIME ONE Administration - Radiology Interpretation CT Results Date: 12/14/20 CT Results Time: 20:51 - Re-Assessments/Exams Free Text/Narrative Re-Assessment/Exam: Normal CT of the HEad 12/14/20 21:08 Departure - Departure Time of Disposition: 21:10 Condition: Fair - Discharge Information *PRESCRIPTION DRUG MONITORING PROGRAM REVIEWED*: Not Applicable *COPY OF PRESCRIPTION DRUG MONITORING REPORT IN PATIENT NADIRA: Not Applicable Sepsis Event Note (ED) - Focused Exam Vital Signs: Vital Signs Temp Pulse Resp BP Pulse Ox 12/14/20 20:32 116 H 23 H 123/68 100 12/14/20 20:00 134 H 20 121/59 L 100 12/14/20 19:05 98 F 116 H 20 122/72 100 12/14/20 19:00 114 H 20 122/72 100 12/14/20 18:32 122 H 18 113/66 100 12/14/20 18:10 98 F 118 H 20 110/59 L 100 ED Communication - ED Communication Date/Time Date: 12/14/20 Time Called: 21:00 - Discussed Case With (1) Discussed Case With (1): Admitting Provider Person/s Notified (1): Chrissie West - Problem List & Annotations (1) Fall from bed, initial encounter SNOMED Code(s): 88121932 Code(s): W06.XXXA - FALL FROM BED, INITIAL ENCOUNTER Status: Acute Current Visit: Yes (2) Alcohol intoxication SNOMED Code(s): 84865850 Code(s): F10.929 - ALCOHOL USE, UNSPECIFIED WITH INTOXICATION, UNSPECIFIED Status: Chronic Priority: High Current Visit: Yes Qualifiers: Complication of substance-induced condition: with unspecified complication Qualified Code(s): F10.929 - Alcohol use, unspecified with intoxication, unspecified (3) Pancreatitis SNOMED Code(s): 39552280 Code(s): K85.90 - ACUTE PANCREATITIS WITHOUT NECROSIS OR INFECTION, UNSP Status: Acute Priority: High Current Visit: Yes Qualifiers: Chronicity: acute Pancreatitis type: alcohol induced (4) Elevated LFTs SNOMED Code(s): 262426059 Code(s): R79.89 - OTHER SPECIFIED ABNORMAL FINDINGS OF BLOOD CHEMISTRY Status: Chronic Priority: Medium Current Visit: Yes - Problem List Review Problem List Initiated/Reviewed/Updated: Yes - Assessment/Plan Plan: Transfer to [facility] 243 report line
[2020-12-14 19:18] LABS: ANION GAP 31.6 mmol/L (5-15); SODIUM,NA 123 mmol/L (136-145)
[2020-12-14 19:21] LABS: CHLORIDE,CL 87 mmol/L (98-107)
[2020-12-14 19:50] LABS: BARBITURATE SCREEN,URINE NEGATIVE (NEGATIVE)
[2020-12-14 19:51] LABS: BENZODIAZEPINES SCREEN,URINE NEGATIVE (NEGATIVE); TCA SCREEN,URINE NEGATIVE (NEGATIVE); THC SCREEN,URINE 50 NG/ML NEGATIVE (NEGATIVE)
[2020-12-14] MEDS ORDERED: Promethazine 25 MG/ML SDV IM PRN (21:40)
== END 2020-12-14 21:50 ==
LOC: KA.ED 18:00
DX: K85.90 Acute pancreatitis without necrosis or infection, unspecified (principal); S05.11XA Contusion of eyeball and orbital tissues, right eye, initial encounter; F10.129 Alcohol abuse with intoxication, unspecified; R79.89 Other specified abnormal findings of blood chemistry; Y90.8 Blood alcohol level of 240 mg/100 ml or more; Z88.0 Allergy status to penicillin; Z79.899 Other long term (current) drug therapy; W06.XXXA Fall from bed, initial encounter
CPT/HCPCS: 36415; 70450; 80053; 80305; 80307; 83690; 84484; 85025; 93005; 96365; 96366; 96375; 96376; 99285; J2405; J3411; J3480; J7030; 99284; J3490